=== PATIENT | female | born 1950 | race Caucasian/White ===

== ENCOUNTER 2019-05-18 06:57 | Day surgery (SDC) | payer OTHER ==
--- OUTSIDE RECORDS SUMMARY | 2019-05-18 07:01 | XMS REPORT ---
:1950 Author Organization [facility] Address [address] [place] [address] [address] [place] [address] Care Team Providers Name Role Phone Unavailable Unavailable Unavailable Problems This patient has no known problems. Allergies, Adverse Reactions, Alerts This patient has no known allergies or adverse reactions. Medications This patient has no known medications.
[2019-05-18] MEDS ORDERED: NA CHLORIDE 0.9% 1,000 ML ONE (07:53)
[2019-05-18] MEDS ORDERED: LIDOCAINE 1% MPF 5 ML VIAL ONE (09:53)
[2019-05-18] MEDS ORDERED: propofoL 200 MG/20 ML VIAL IV ONE ×2 (09:53)
--- NOTE | 2019-05-18 10:16 | ENDO RPT ---
[address], [address] EGD PROCEDURE REPORT EXAM DATE: 05/18/2019 PATIENT NAME: Luciana Fishman MR#: [id number] BIRTHDATE: 1950 ATTENDING: [address] STATUS: outpatient AIRPORT OPERATIONS COORDINATOR: Debbie Pineda RN, Rosario Gillespie RN, and Daniela Turner Tech INDICATIONS: The patient is a 69 yr old Female here for an EGD due to heartburn PROCEDURE PERFORMED: EGD with biopsy MEDICATIONS: Per Anesthesia. TOPICAL ANESTHETIC: none CONSENT: The patient understands the risks and benefits of the procedure and understands that these risks include, but are not limited to: sedation, allergic reaction, infection, perforation and/or bleeding. Alternative means of evaluation and treatment include, among others: physical exam, x-rays, and/or surgical intervention. The patient elects to proceed with this endoscopic procedure. DESCRIPTION OF PROCEDURE: During intra-op preparation period all mechanical medical equipment was checked for proper function. Hand hygiene and appropriate measures for infection prevention was taken. Procedure, possible complications, and alternatives including but not limited to the possibility of bleeding, perforation, tear, infection, sepsis, need for surgery, need for blood transfusion, and anesthesia related complications were explained to the patient. After the risks, benefits and alternatives of the procedure were thoroughly explained, Informed consent was verified, confirmed and timeout was successfully executed by the treatment team. The patient was placed in the left lateral position. The patient was anesthetized with topical anesthesia. Through the anesthetized oropharyngeal area, the scope was passed without any difficulty. The EG-[id number] ([id number]) endoscope was introduced through the mouth and advanced to the second portion of the duodenum. Retroflexed views revealed no abnormalities. The gastroscope was then slowly withdrawn and removed. LA Class B esophagitis was found in the lower esophagus. Possible Gaxiola's esophagus (< 1 cm) was found in the lower esophagus. With jumbo forceps, a biopsy was obtained and sent to pathology. Wide cardia was found in the cardia. Mild gastritis was found in the antrum. Multiple biopsies were obtained and sent to pathology. Multiple (7) erosions were found in the antrum. ADVERSE EVENTS: There were no complications. IMPRESSIONS: 1. LA class B esophagitis in the lower esophagus 2. Possible Gaxiola's esophagus (< 1 cm) in the lower esophagus, s/p biopsy 3. Wide cardia at the cardia 4. Mild gastritis in the antrum, s/p biopsies 5. Multiple (7) erosions in the antrum RECOMMENDATIONS: 1. await biopsy results 2. acid suppression therapy REPEAT EXAM: [address]ero [address] Dr eSigned: Guero [address] Dr 05/18/2019 10:16 AM cc: Korin Fernandez CPT CODES: ICD9 CODES: PATIENT NAME: Luciana Fishman MR#: [id number]
--- NOTE | 2019-05-18 10:39 | ENDO RPT ---
[address], [address] COLONOSCOPY PROCEDURE REPORT EXAM DATE: 05/18/2019 PATIENT NAME: Luciana Fishman MR #: [id number] BIRTHDATE: 1950 ATTENDING: [address] STATUS: outpatient REEL ASSEMBLER: Debbie Pineda RN, Rosario Gillespie RN, and Daniela Bush INDICATIONS: The patient is a 69 yr old Female here for a colonoscopy due to colon cancer screening PROCEDURE PERFORMED: Screening Colonoscopy MEDICATIONS: Per Anesthesia. ESTIMATED BLOOD LOSS: None CONSENT: The patient understands the risks and benefits of the procedure and understands that these risks include, but are not limited to: sedation, allergic reaction, infection, perforation and/or bleeding. Alternative means of evaluation and treatment include, among others: physical exam, x-rays, and/or surgical intervention. The patient elects to proceed with this endoscopic procedure. DESCRIPTION OF PROCEDURE: During intra-op preparation period all mechanical medical equipment was checked for proper function. Hand hygiene and appropriate measures for infection prevention was taken. Procedure, possible complications, alternatives including, but not limited to possibility of bleeding, perforation, tear, infection, sepsis, need for surgery, need for blood transfusion, were explained to the patient. After the risks, benefits and alternatives of the procedure were thoroughly explained, Informed consent was verified, confirmed and timeout was successfully executed by the treatment team. The patient was placed in the left lateral position. A digital rectal exam was performed and revealed no abnormalities of the rectum. After appropriate level of anesthesia, the scope was passed. The EG-[id number] ([id number]) and EC-[id number] ([id number]) endoscope was introduced through the anus and advanced to the terminal ileum which was intubated for a short distance. The quality of the prep was good. The instrument was then slowly withdrawn as the colon was fully examined. Scope withdrawal time was 7 minutes. COLON FINDINGS: Small internal hemorrhoids were found. Retroflexed views revealed small hemorrhoids. The scope was then completely withdrawn from the patient and the procedure terminated. ADVERSE EVENTS: There were no complications. IMPRESSIONS: 1. Small internal hemorrhoids 2. Intubation to terminal ileum RECOMMENDATIONS: 1. yearly hemoccult starting in 4 years 2. fiber rich diet RECALL: Return in 5-10 year(s) (poor colonoscope optics) for Colonoscopy. [address] Dr eSigned: Guero [address] Dr 05/18/2019 10:39 AM cc: Korin Fernandez CPT CODES: ICD9 CODES: PATIENT NAME: Luciana Fishman MR#: [id number]
[2019-05-18 10:53] VITALS: O2SAT 92
[2019-05-18 11:01] VITALS: BP 116/51; TEMP 97.3
== END 2019-05-18 11:11 | disposition home or self-care (01) ==
LOC: OR 06:57
PROVIDERS: ATTEND Internal Medicine Gastroenterology
PROC: 0DJD8ZZ Inspection of Lower Intestinal Tract, Via Natural or Artificial Opening Endoscopic (ICD-10-PCS; 2019-05-18)
PROC: 0DB38ZX Excision of Lower Esophagus, Via Natural or Artificial Opening Endoscopic, Diagnostic (ICD-10-PCS; principal; 2019-05-18 09:30)
PROC: 0DB68ZX Excision of Stomach, Via Natural or Artificial Opening Endoscopic, Diagnostic (ICD-10-PCS; 2019-05-18 09:30)
DX: K20.8 Other esophagitis (principal); Z12.11 Encounter for screening for malignant neoplasm of colon; K29.50 Unspecified chronic gastritis without bleeding; K25.9 Gastric ulcer, unspecified as acute or chronic, without hemorrhage or perforation; K64.8 Other hemorrhoids; E11.9 Type 2 diabetes mellitus without complications; I10 Essential (primary) hypertension; F32.9 Major depressive disorder, single episode, unspecified; E66.01 Morbid (severe) obesity due to excess calories; Z68.41 Body mass index [BMI] 40.0-44.9, adult; Z86.73 Personal history of transient ischemic attack (TIA), and cerebral infarction without residual deficits
CPT/HCPCS: 88312; 88313; 82947; 88305; 43239; 45378; J2704 ×2; J7030